=== PATIENT | female | born 1985 | race Caucasian/White ===

== ENCOUNTER 2019-08-26 10:10 | Inpatient (IN) | payer MEDICAID ==
[~2019-08-26] VITALS: Ht 160 cm; Wt 71.7 kg
--- NOTE | 2019-08-26 10:13 | NUR ---
pt taken to bed 05 by ems
[2019-08-26 10:14] VITALS: BP 131/70
--- NOTE | 2019-08-26 10:15 | NUR ---
PT BIBA FOR DANGER TO SELF. PER EMS AND NIA JACKSON, PT WAS ATTEMPTING TO WALK INTO A BUSY INTERSECTION. NIA JACKSON WITNESSED EVENT, STOPPED PT AND RE-ORIENTED PT TO SURROUNDINGS. PT THEN WAS CLEARED. PT THEN CONTINUED TO WALK INTO TRAFFIC AND HOLD WAS PLACED BY NAVYA JACKSON. PT HAS SUSPICIOUS BEHAVIOR, DOES NOT ANSWER QUESTIONS APPRIORIATELY. UNKNOWN PMH. PT APPEARS TO BE HOMELESS. PT SITTING IN BED, 1-1 SITTER, SUICIDE PRECAUTIONS IN PLACE.
--- NOTE | 2019-08-26 10:15 | NUR ---
PT CONFUSED, ALERT TO SELF
--- NOTE | 2019-08-26 10:17 | NUR ---
PT UNCOOPERATIVE, DOES NOT WANT TO PROVIDE URINE, SITTING IN BED
--- NOTE | 2019-08-26 10:21 | NUR ---
WHEN PT ASKED IF SHE WISHES TO BE , HER ANSWER IS OFF TOPIC AND IRRELEVANT TO QUESTION ASKED
[2019-08-26] MEDS ORDERED: OLANZapine 5 MG ODT PO ONE (10:25)
--- NOTE | 2019-08-26 10:29 | NUR ---
LAB AT BEDSIDE
[2019-08-26 10:36] LABS: BASOPHILS # (AUTO) 0.1 K/uL (0.00-0.22); EOSINOPHILS % (AUTO) 0.8 % (0.0-4.0); HEMATOCRIT 37.3 % (36-48); HEMOGLOBIN 12.3 g/dL (12.0-16.0); LYMPHOCYTES # (AUTO) 1.9 K/uL (2.5-16.5); LYMPHOCYTES % (AUTO) 35.8 % (20.5-51.1); MEAN CORPUSCULAR HEMOGLOBIN 30 pg (27-31); MEAN CORPUSCULAR HGB CONC 33 g/dL (33-37); MONOCYTES # (AUTO) 0.6 K/uL (0.8-1.0); MONOCYTES % (AUTO) 11.5 % (1.7-9.3); NEUTROPHILS # (AUTO) 2.7 K/uL (1.8-7.7); NEUTROPHILS % (AUTO) 50.9 % (42.2-75.2); PLATELET COUNT (AUTO) 365 K/uL (140-450); RED CELL DISTRIBUTION WIDTH 16.1 % (11.6-13.7); WHITE BLOOD COUNT (AUTO) 5.2 K/uL (4.8-10.8)
--- NOTE | 2019-08-26 10:40 | NUR ---
offered pt food, she states she is not hungry at this time.
[2019-08-26 11:05] LABS: ALBUMIN 4.1 g/dL (3.4-5.0); ANION GAP 15.1 (8-16); ASPARTATE AMINOTRANSFERASE 20 U/L (15-37); CARBON DIOXIDE 28.2 mmol/L (21-32); CHLORIDE 103 mmol/L (98-107); CREATININE 0.7 mg/dL (0.6-1.3); GFR ARICAN-AMERICAN 124 mL/min (>90); GLUCOSE 96 mg/dL (74-106); POTASSIUM 3.3 mmol/L (3.5-5.1); SODIUM SERUM 143 mmol/L (136-145); TOTAL BILIRUBIN 0.6 mg/dL (0.0-1.0); UREA NITROGEN, BLOOD 18 mg/dL (7-18)
--- NOTE | 2019-08-26 11:14 | NUR ---
PT STILL UNABLE TO PROVIDE URINE
[2019-08-26 11:19] LABS: ACETAMINOPHEN < 0.5 ug/ml (10-30); SALICYLATE < 2.8 mg/dL (2.8-20.0)
--- NOTE | 2019-08-26 11:39 | NUR ---
pt provided urine, walked over to lab by ALAINA Webb
--- NOTE | 2019-08-26 11:40 | NUR ---
ordered styrofoam lunch tray for pt
--- NOTE | 2019-08-26 11:40 | NUR ---
Melani franklin in [facility] - 08/26/19 at 1141 by [email or web address] alexandr lagos pt
[2019-08-26 11:42] LABS: APPEARANCE,URINE CLEAR (CLEAR); BILIRUBIN,URINE 1+ (NEGATIVE); BLOOD, URINE 1+ (NEGATIVE); COLOR,URINE YELLOW (YELLOW); LEUKOCYTE ESTERASE ,URINE 2+ (NEGATIVE); NITRITE, URINE NEGATIVE (NEGATIVE); UGLUCOSE NEGATIVE (NEGATIVE)
--- NOTE | 2019-08-26 11:53 | NUR ---
Gave report to telepsychiatrist Dr. Knutson
[2019-08-26 11:59] LABS: RBC,URINE 0-5 /HPF (0-5)
[2019-08-26 12:00] LABS: HYALINE CASTS, URINE 0-10 /LPF (None Seen)
[2019-08-26] MEDS ORDERED: CEPHALEXIN 500 MG CAP PO ONE (12:05)
--- NOTE | 2019-08-26 12:08 | NUR ---
KEFLEX PO ADMINISTERED FOR UTI
[2019-08-26] MEDS ORDERED: DIVALPROEX 500 MG TABEC PO ONE (12:15)
--- NOTE | 2019-08-26 12:15 | NUR ---
PT STATES TO PSYCHIATRIST THAT SHE HAS SCHIZOAFFECTIVE DISORDER AND BIPOLAR DISORDER. STATES SHE TAKES ABILIFY AND DEPAKOTE.
--- NOTE | 2019-08-26 12:16 | NUR ---
Spoke with Dr. Knutson and he stated the hold will be kept in place at this time. He reccomends giving the pt 5mg abilify and 500mg depakote at this time. Dr. Herrmann informed.
[2019-08-26] MEDS ORDERED: ARIP5TAB8 PO (12:19)
[2019-08-26] MEDS ORDERED: DIVA500T1 PO (12:19)
--- NOTE | 2019-08-26 13:18 | NUR ---
PT SLEEPING, 1-1 SITTER AT BEDSIDE
[2019-08-26 13:24] LABS: BARBITURATE, URINE NEGATIVE ng/ml (NEG <=200); BENZODIAZEPINE, URINE NEGATIVE ng/mL (NEG <=200); CANNABINOID, URINE NEGATIVE ng/mL (NEG <=50); COCAINE, URINE NEGATIVE ng/mL (NEG <=300); OPIATE, URINE NEGATIVE ng/mL (NEG <=2000); PHENCYCLIDINE SCREEN,URINE NEGATIVE ng/mL (NEG <=25)
--- NOTE | 2019-08-26 13:59 | NUR ---
PT AROUSBLE TO NAME. VS STABLE.
--- NOTE | 2019-08-26 14:41 | NUR ---
PT REPORTS "I SEE A SPIRIT GOING ABOVE ME AND BELOW THE BED AND ITS GOING "SOTO."I DONT KNOW IF WHAT IM SEEING IS REALLY THERE OR TRUE." DR. MIRZA NOTIFIED OF PATIENTS VISUAL AND AUDITORY HALLUCINATIONS.
--- NOTE | 2019-08-26 15:56 | NUR ---
Received patient packet and 5150 hold. Pt is not medically clear as her UDS is still pending. [facility] will look for placment when UDS results are in and patient is medically clear.
--- NOTE | 2019-08-26 16:20 | NUR ---
PT SITTING IN BED, ALERT AND AWAKE, 1-1 SITTER AT BEDSIDE
--- NOTE | 2019-08-26 17:02 | NUR ---
Packet referred to the following facilities: [facility]
--- NOTE | 2019-08-26 18:21 | NUR ---
PT AWAKE AND SITTING IN BED. NO COMPLAINTS AT THIS TIME. 1-1 SITTER
--- NOTE | 2019-08-26 18:29 | NUR ---
PT DECLINED VITAL SIGNS. PT SITTING IN BED. RR EVEN , ALL NEEDS MET AT THIS TIME.
--- NOTE | 2019-08-26 19:16 | NUR ---
RECEIVED REPORT FORM ALAINA RODGERS FOR CONTINUITY OF CARE.
--- NOTE | 2019-08-26 20:00 | NUR ---
PT RESTING IN BED, SITTER AT BEDSIDE, NO NEW NEEDS. NO RESPIRATORY DISTRESS NOTED. BED IN LOWEST POSITION, SIDE RAIL UP X2. WILL CONTINUE TO MONITOR.
--- NOTE | 2019-08-26 22:00 | NUR ---
PT RESTING IN BED, SITTER AT BEDSIDE, NO NEW NEEDS. NO RESPIRATORY DISTRESS NOTED. BED IN LOWEST POSITION, SIDE RAIL UP X2. WILL CONTINUE TO MONITOR.
[2019-08-26] MEDS ORDERED: DOCUSATE SODIUM 100 MG GELCAP PO PRN (22:10)
[2019-08-26] MEDS ORDERED: ACETAMINOPHEN 325 MG TAB PO PRN (22:10)
[2019-08-26] MEDS ORDERED: HYDROcodone/APAP 5/325 MG 1 TAB TAB PO PRN (22:10)
[2019-08-26] MEDS ORDERED: ONDANSETRON 4 MG/2 ML VIAL IM/IVP PRN (22:10)
--- NOTE | 2019-08-26 22:35 | NUR ---
Patient will be admitted to care of DR. CARRASCO. Admited to [facility]. Will go to room 109B. Belongings list completed. Report to ALAINA LAZARO.
--- NOTE | 2019-08-26 22:35 | NUR ---
RECEIVED PT FROM ER / WHEELCHAIR ,AAOX 2 TO 3 - PT SEEMS HAS DIFFICULTY TO ANSWER THE QUESTIONS - SOME QUESTION ANSWER CORRECTLY BUT MAJORITY ARE NOT - SEEMS HAS TROUBLE IN CONCENTRATION IN ONE TOPIC. -- POSITIVE TO DRUG TEST - AMPHETHAMINE. HOMELESS , DISHELVED IN APPEARANCE ,CAN FOLLOW SIMPLE COMMAND AND CAN ADDRESS HER NEEDS LIKE "I WANT SOMETHING TO EAT " SHE SAID . DENIES ANY PAIN.NID V/S WNL. ADMISSION ASSESSMENT - DONE , MRSA -SENT TO LAB. PUT ON 1:1 SITTER ORDERED - 1110.POC DISCUSSED AND VERBALIZE FAIR UNDERSTANDING . WILL INSERT IV ACCESS . WILL CONT. TO MONITOR.SUICIDE RISK.
[2019-08-26 22:36] LABS: MAGNESIUM 2.2 mg/dL (1.8-2.4); PHOSPHORUS 4.5 mg/dL (2.5-4.9); THYROID STIMULATING HORMONE 4.74 uIU/mL (0.34-3.74)
[2019-08-26] MEDS ORDERED: cefTRIAXone 1,000 MG VIAL ONE (23:15)
[2019-08-26] MEDS ORDERED: POTASSIUM CHLORIDE 10 MEQ TABER PO SCH (23:35)
--- NOTE | 2019-08-27 | NUR ---
MADE ROUNDS . ON 1:1 SITTER . 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 WILL CONT. TO MONITOR.
--- NOTE | 2019-08-27 02:00 | NUR ---
MADE ROUNDS, ON 1:1 SITTER , NO COMPLAIN MADE , WILL CONT. TO MONITOR.
--- NOTE | 2019-08-27 06:18 | NUR ---
Received report from tin plater. There are still no beds at this time. [facility] still working on placement.
--- NOTE | 2019-08-27 07:15 | NUR ---
RECEIVED BEDSIDE REPORT FROM NIGHTSHIFT NURSE. PT RESTING IN BED. ABLE TO MAKE NEEDS KNOWN. RESPIRATIONS EVEN AND UNLABORED WITH NO SOB OR RESPIRATORY DISTRESS. SKIN WARM AND DRY TO TOUCH. IV SITE IN RIGHT HAND 24G IS CLEAN, DRY, AND INTACT. 1:1 SITTER MONITORING PATIENT. SAFETY MEASURES IN PLACE. WILL CONTINUE TO MONITOR
[2019-08-27 07:44] LABS: BASOPHILS % (AUTO) 0.8 % (0.0-2.0); EOSINOPHILS # (AUTO) 0.1 K/uL (0-0.4); EOSINOPHILS % (AUTO) 1.5 % (0.0-4.0); HEMATOCRIT 34.4 % (36-48); HEMOGLOBIN 11.2 g/dL (12.0-16.0); LYMPHOCYTES # (AUTO) 2.4 K/uL (2.5-16.5); LYMPHOCYTES % (AUTO) 44.7 % (20.5-51.1); MEAN CORPUSCULAR HEMOGLOBIN 30 pg (27-31); MEAN CORPUSCULAR HGB CONC 33 g/dL (33-37); MEAN CORPUSCULAR VOLUME 92.5 fL (80-94); MONOCYTES # (AUTO) 0.5 K/uL (0.8-1.0); MONOCYTES % (AUTO) 9.9 % (1.7-9.3); NEUTROPHILS # (AUTO) 2.3 K/uL (1.8-7.7); NEUTROPHILS % (AUTO) 43.1 % (42.2-75.2); PLATELET COUNT (AUTO) 328 K/uL (140-450); RED BLOOD CELL COUNT(AUTO) 3.72 MIL/uL (4.20-5.40); RED CELL DISTRIBUTION WIDTH 15.8 % (11.6-13.7); WHITE BLOOD COUNT (AUTO) 5.4 K/uL (4.8-10.8)
[2019-08-27 07:47] LABS: CHOL/HDL RATIO 2.7 (1-4.5)
[2019-08-27 07:54] LABS: ANION GAP 11.1 (8-16); CARBON DIOXIDE 28.6 mmol/L (21-32); CREATININE 0.6 mg/dL (0.6-1.3); POTASSIUM 3.7 mmol/L (3.5-5.1)
[2019-08-27 08:00] VITALS: BP 106/53
--- NOTE | 2019-08-27 08:43 | NUR ---
PATIENT HAS BEEN SCREENED AND CATEGORIZED LOW NUTRITION RISK. PATIENT WILL BE SEEN WITHIN 7 DAYS OF ADMISSION. 09/02/[address]
--- NOTE | 2019-08-27 08:49 | NUR ---
Packet referred to [facility] for review.
[2019-08-27] MEDS ORDERED: ARIPiprazole 10 MG TAB PO SCH (09:00)
--- NOTE | 2019-08-27 09:15 | NUR ---
RECEIVED CALL FROM [facility] AND SPOKE WITH IDALMIS. SHE SAID THE PATIENT HAS BEEN ACCEPTED AND WILL UNDER THE CARE OF DR. BARON AND THE PT WILL BE IN UNIT 1. SAFETY MEASURES IN PLACE. WILL CONTINUE TO MONITOR
--- NOTE | 2019-08-27 10:30 | NUR ---
PT IS AWARE OF DISCHARGE TO [facility]. REPORT GIVEN TO ALAINA LLAMAS. MURIEL VERBALIZED UNDERSTANDING. SAFETY MEASURES IN PLACE. WILL CONTINUE TO MONITOR
[2019-08-27 10:36] VITALS: BP 106/53
[2019-08-27] MEDS ORDERED: ROC1PM IV (10:54)
[2019-08-27] MEDS ORDERED: LACT-81 PO (10:55)
--- NOTE | 2019-08-27 11:30 | NUR ---
WENT OVER DISCHARGE INSTRUCTIONS WITH PT. PT SIGNED APPROPRIATE DOCUMENTS. INSTRUCTED PT TO VISIT ED FOR ANY SIGNS OF DISTRESS. PT VERBALIZED UNDERSTANDING. GAVE PT PSYCH FACILITY RESOURCE PACKET [facility] RESOURCE PACKET. REMOVED INTACT IV CANNULA AND ID BAND. SECURITY WAS CALLED TO BRING PT BELONGINGS. BELONGINGS GIVEN TO [facility]. PT CHANGED INTO [place] [place]. PT IS TRANSPORTED TO [facility]IA [facility]. PT IS STABLE
== END 2019-08-27 11:30 | DRG 812 ==
LOC: MED 10:10 → MTU 22:06
PROVIDERS: ADMIT General Practice; ATTEND General Practice
PROC: 5A09357 Assistance with Respiratory Ventilation, Less than 24 Consecutive Hours, Continuous Positive Airway Pressure (ICD-10-PCS; principal; 2019-08-26)
DX: T43.621A Poisoning by amphetamines, accidental (unintentional), initial encounter (principal); G92 Toxic encephalopathy; F20.9 Schizophrenia, unspecified; E88.09 Other disorders of plasma-protein metabolism, not elsewhere classified; R45.851 Suicidal ideations; N39.0 Urinary tract infection, site not specified; E87.6 Hypokalemia; F31.9 Bipolar disorder, unspecified; E02 Subclinical iodine-deficiency hypothyroidism; Z71.51 Drug abuse counseling and surveillance of drug abuser; Y92.89 Other specified places as the place of occurrence of the external cause
CPT/HCPCS: 36415; 71045; 80048; 80053; 80305; 81001; 81025; 83036; 83690; 83735; 84100; 84443; 85025; 87081; 87086; 99285; G0480; G0482; J0696; J7060; Q0092